=== PATIENT | female | born 1995 | race Caucasian/White ===

== ENCOUNTER 2020-01-30 21:06 | Emergency (ER) | payer OTHER, SELFPAY ==
[2020-01-30 21:08] VITALS: BP 131/74; PULSE 97; RESP 15; TEMP 37.1; O2SAT 98; BMI 37.5
[2020-01-30] MEDS: RALTEGRAVIR POTASSIUM 400 MG TABLET PO (22:02)
[2020-01-30] MEDS: EMTRICITABINE/TENOFOVIR 1 TABLET TABLET PO (22:02)
--- NOTE | 2020-01-30 22:14 | ED.DEP ---
ED Disposition - Plan for ED Patient: Instructions: BODY FLUID EXPOSURE, Health Care Worker Prescriptions: Raltegravir Potassium [Isentress] 400 mg PO BID #14 tablet Emtricitabine/Tenofovir (Tdf) [Truvada 200 mg-300 mg Tablet] 1 each PO DAILY #6 tablet Referrals: [facility] [GROUP OF PHYSICIANS] -
--- NOTE | 2020-01-30 22:45 | ED.VISSUMM ---
- ER Visit Summary Date of Service: 01/30/20 Chief Complaint: Needlestick History of Present Illness: The patient is a 24 F presenting after needlestick at work. Patient works at [employer] She was working in the [employer] and she was getting a residents bag down. She was accidentally stuck with an insulin needle that was in the bag. Unknown if it was contaminated. She punctured her left thumb. No other injuries. She has no information about the source's medical history. She irrigated the wound prior to arrival. Physical Examination: Vitals are stable. Patient is afebrile. Alert no acute distress. HEENT exam is unremarkable. Neck is supple. Lungs are clear and equal bilaterally. Heart is regular rate and rhythm. Extremities very small puncture finger pad left thumb Skin is warm and dry. Remainder of exam is unremarkable. Emergency Department Course and Treatment: Exposure labs were drawn. She does not know the medical history of the source. I advised her I feel this is likely a very low risk needlestick. She would like the HIV postexposure prophylaxis prescriptions and then she will decide if she is going to take this course of medication. She was given prescriptions for postexposure prophylaxis. She is advised to follow-up with [facility]. Advised return to ED if worsening complaints. Disposition: Discharge home Impression: Occupational needlestick This note was generated with [employer] dictation software. It may contain incorrect words, spelling, and punctuation that were not noted in review of the chart prior to signing ED Disposition - Plan for ED Patient: Instructions: BODY FLUID EXPOSURE, Health Care Worker Prescriptions: Raltegravir Potassium [Isentress] 400 mg PO BID #14 tab Prescription Printed Emtricitabine/Tenofovir (Tdf) [Truvada 200 mg-300 mg Tablet] 1 ea PO DAILY #6 tab Prescription Printed [facility] -
[2020-01-31 00:05] LABS: HIV - WCH Non-Reactive (Nonreactive); Hepatitis B Surface Antibody Non-Reactive; Hepatitis B Surface Antigen Non-Reactive (Nonreactive); Hepatitis C Antibody Non-Reactive (Nonreactive)
== END 2020-01-30 23:35 | disposition home or self-care (01) ==
LOC: ED 21:36
PROVIDERS: Emergency Provider Emergency Medicine
DX: S61.032A Puncture wound without foreign body of left thumb without damage to nail, initial encounter (principal); W46.1XXA Contact with contaminated hypodermic needle, initial encounter; Y93.9 Activity, unspecified; Y92.9 Unspecified place or not applicable
CPT/HCPCS: 36415; 86703; 86706; 86803; 87340; 90746; 96372; 99283

== ENCOUNTER 2020-01-31 19:33 | Emergency (ER) | payer OTHER, BC, SELFPAY ==
[2020-01-30 21:08] VITALS: BMI 37.5
[2020-01-31 19:34] VITALS: BP 136/94; PULSE 99; RESP 17; TEMP 36.3; O2SAT 100; BMI 38.8
--- NOTE | 2020-01-31 19:42 | ED.DCSUM_ITS ---
- ER Visit Summary Date of Service: 01/31/20 This is an addendum to the previous day's dictation. Patient was seen by myself yesterday for needlestick which occurred at work. Her needlestick was considered very low risk but she would like to proceed with HIV postexposure prophylaxis. She was given medications and prescriptions yesterday and advised to follow-up with [facility]. When she called today to make an appointment they gave her an appointment for next week. When she went to the pharmacy the prescriptions were several thousand dollars. She was unable to fill the prescriptions. She returned for her dose of post exposure prophylaxis today and nursing home admissions director advised to make this a medication only visit. She was advised to follow-up with [facility] in the morning. This note was generated with [employer] dictation software. It may contain incorrect words, spelling, and punctuation that were not noted in review of the chart prior to signing ED Disposition - Plan for ED Patient: Referrals: Care Physician,No Primary [Primary Care Provider] -
[2020-01-31] MEDS: EMTRICITABINE/TENOFOVIR 1 TABLET TABLET PO (19:54)
[2020-01-31 19:55] VITALS: BMI 38.8
[2020-01-31] MEDS: RALTEGRAVIR POTASSIUM 400 MG TABLET PO (19:55)
[2020-01-31 19:57] VITALS: RESP 17
== END 2020-01-31 20:06 | disposition home or self-care (01) ==
LOC: ED 19:53
PROVIDERS: Emergency Provider Emergency Medicine
DX: Z76.0 Encounter for issue of repeat prescription (principal)
CPT/HCPCS: 99282

== ENCOUNTER 2020-02-01 15:27 | Emergency (ER) | payer OTHER, BC, SELFPAY ==
[2020-01-31 19:55] VITALS: BMI 38.8
[2020-02-01 15:28] VITALS: BP 145/90; PULSE 95; RESP 16; TEMP 36.8; O2SAT 99; BMI 38.3
--- NOTE | 2020-02-01 15:51 | ED.VIS.GEN ---
History of Present Illness Chief Complaint: Meds Only Informant: Patient Onset: Today Narrative: Patient presents here for a prophylactic treatment for needlestick occurring 2 days ago. Works at [employer], states was transporting patients purse when the needle was taken out. She was seen in the ED initially started on prophylactic treatment, she was given prophylactic prescriptions however is too costly. Told to return to the ED yesterday was given a prophylactic treatment then. Her work told her to call [facility] today, they reported her to return for additional prophylactic treatment and hopefully patient HIV results will be obtained by tomorrow performed by her PCP as an outpatient. 1 medications Truvada daily the other is Isentress which is twice a day. Denies fevers. Denies abdominal pain nausea vomiting. No side effects from medications. Prior similar symptoms: Yes Past Medical History - Allergies and Home Meds Allergies/Adverse Reactions: Allergies No Known Allergies Allergy (Verified 02/01/20 15:29) Primary Care Physician: Care Physician,No Primary [Primary Care Provider] - Smoking Status: Never smoker Review of Systems General: Denies: Chills, Fever, Sweats Eyes: Denies: Visual changes - bilaterally, Diplopia ENT: Denies: Rhinorrhea, Sore throat Cardiovascular: Denies: Chest pain, Palpitations Respiratory: Denies: Dyspnea, Cough, Dyspnea on exertion Gastrointestinal: Denies: Abdominal pain, Nausea, Vomiting, Diarrhea, Melena, Hematochezia Genitourinary: Denies: Dysuria, Hematuria, Frequency Musculoskeletal: Denies: Back pain, Extremity Pain Skin: Denies: Rash, Wounds Neurological: Denies: Headache, Weakness, Numbness Physical Exam Vital Signs/Narrative: Vital Signs Temp Pulse Resp BP Pulse Ox 02/01/20 15:28 98.3 F 95 16 145/90 H 99 General: Well nourished, Well developed, No Acute Distress Head: Normocephalic, Atraumatic Eyes: Perrl, EOMI ENT: Moist mucous membranes, No rhinorrhea Neck: Supple, Nontender Cardiovascular: Regular rate, Regular rhythm, No murmurs Respiratory: No distress, CTA bilaterally, Chest nontender Abdomen: Soft, Nontender, Nondistended, Normal bowel sounds Back: Nontender, Normal Inspection Extremities: Nontender, No edema Skin: Normal color, No rash Neurological: Alert, Oriented x3, Cranial nerves II-XII grossly intact, Normal Strength, Normal Sensation Psychological: Normal affect, Normal Mood Diagnostic/Tx/Re-eval - Medical Decision Making Patient vitals stable, was given her prophylactic doses of medications. Due to cost of medications unable to fill at this time. She has a nighttime Isentress dosing for which she requested, therefore, I spoke with nursing pit and auxiliaries supervisor who cleared to dispense the night dose for patient. Hopefully results patient screening will be obtained tomorrow. Outpatient follow-up and continued screening as needed. All questions were answered. ED Disposition - Plan for ED Patient: Disposition: Home or Assisted Living Diagnosis: Medication administered, Needle stick injury Referrals: [facility] [GROUP OF PHYSICIANS] - Keep Laura appointment
--- NOTE | 2020-02-01 16:18 | ED.VIS.GEN ---
History of Present Illness Chief Complaint: Meds Only Informant: Patient Past Medical History - Allergies and Home Meds Allergies/Adverse Reactions: Allergies No Known Allergies Allergy (Verified 02/01/20 15:29) Primary Care Physician: [facility] BISHOP [GROUP OF PHYSICIANS] - Keep [facility] appointment Smoking Status: Never smoker Physical Exam Vital Signs/Narrative: Vital Signs Temp Pulse Resp BP Pulse Ox 02/01/20 15:28 98.3 F 95 16 145/90 H 99 Diagnostic/Tx/Re-eval - Medical Decision Making Addendum: Pharmacy did not allow dispensing additional 1 dose of Isentress. Therefore she is given her first dose has been order, her nighttime dose was E prescribed to the retail pharmacy here, they did bring her medications to the ED before discharge for nighttime use. ED Disposition - Plan for ED Patient: Disposition: Home or Assisted Living Diagnosis: Medication administered, Needle stick injury Prescriptions: Raltegravir Potassium [Isentress] 400 mg PO QHS #1 tab Transmission Status: Pending to [facility] Referrals: [facility]IO BISHOP [GROUP OF PHYSICIANS] - Keep [facility] appointment
[2020-02-01] MEDS: EMTRICITABINE/TENOFOVIR 1 TABLET TABLET PO (16:28)
[2020-02-01] MEDS: RALTEGRAVIR POTASSIUM 400 MG TABLET PO (16:28)
== END 2020-02-01 16:40 | disposition home or self-care (01) ==
PROVIDERS: Emergency Provider Emergency Medicine
DX: Z77.21 Contact with and (suspected) exposure to potentially hazardous body fluids (principal); W46.0XXA Contact with hypodermic needle, initial encounter; Y99.0 Civilian activity done for income or pay
CPT/HCPCS: 99282

== ENCOUNTER → 2020-07-18 09:34 | Outpatient (CLI) | payer BC, SELFPAY ==
--- NOTE | 2020-07-18 10:00 | MRI_ITS ---
STUDY: MRI BRAIN WITH AND WITHOUT CONTRAST (ATTENTION INTERNAL AUDITORY CANALS - I.A.C.''s) REASON FOR EXAM: Female, 25 years old. sudden hearing loss left ear, tinnitus TECHNIQUE: Standardized multiplanar fat and water weighted pulse sequences were obtained. IV 19ml dotarem was administered for the contrast portion of the examination. COMPARISON: None. FINDINGS: Normal bilateral temporal bones. Normal bilateral internal auditory canals. There is no demonstrated intracanalicular or cisternal vestibular schwannoma (acoustic neuroma). There is no enhancement of the bilateral VIIth or VIIIth cranial nerves. Normal bilateral cochlea, vestibules and semicircular canals. Normal size of the ventricles and extra-axial spaces for the patient''s age. Normal white matter tracts of the supratentorial brain. There is no evidence for recent intracranial ischemia or other cause of cytotoxic edema on diffusion weighted imaging (DWI). Normal bilateral basal ganglia. Normal thalami. Normal flow voids within the major intracranial circulation suggesting patency by spin echo criteria. Normal venous enhancement. There is no enhancing intra-axial or extra-axial abnormality. There is no extra-axial fluid accumulation. Normal sella turcica, pituitary gland, infundibular stalk, optic chiasm and hypothalamus. Normal tectal plate and pineal gland. Normal midbrain, jenny and medulla. Normal cerebellum. Normal basal cisterns. No demonstrated orbital abnormality, within the constraints of a routine brain study. Normal visualized paranasal sinuses. Normal calvarium and skull base. Normal visualized soft tissue structures. Normal visualized upper cervical spine. MRI/Brain W/WO Contrast IMPRESSION: Normal unenhanced and enhanced MRI of the bilateral internal auditory canals (I.A.C''s). Electronically Signed: Joseph Clarke MD at 13:15 EDT Tel , Service support ,
== END ==
PROVIDERS: Referring Provider Otolaryngology; Visit Provider Otolaryngology
DX: H91.22 Sudden idiopathic hearing loss, left ear (principal)
CPT/HCPCS: 70553; A9575